=== PATIENT | female | born 1955 | race Caucasian/White ===

== ENCOUNTER 2021-09-17 15:21 | Emergency (ER) | payer OTHER ==
[2021-09-17 17:29] LABS: BASOPHIL 0.3 % (0-2); EOSINOPHIL 0.3 % (0-7); HGB 13.3 g/dl (12.5-16.0); LYMPHOCYTE 12.9 % (15-48); MCH 29.2 pg (25.0-31.0); MCHC 32.4 g/dL (32.0-36.0); MCV 89.9 fL (78.0-100.0); MONOCYTE 9.8 % (0-12); MPV 10.4 fL (6.0-9.5); NEUTROPHIL 76.3 % (41-80); NRBC 0; PLT 180 K/uL (150-400); RBC 4.56 M/uL (4.20-5.40); RDW 15.4 % (11.5-14.0); WBC 17.9 K/uL (4.0-10.5)
[2021-09-17 17:40] LABS: ALBUMIN 3.9 g/dL (3.4-5.0); BILIRUBIN - TOTAL 1.4 mg/dL (0.2-1.0); BUN/CREAT RATIO (CALC) 18.4 RATIO; CREATININE 0.76 mg/dL (0.51-0.95); GLOBULIN (CALCULATION) 3.4 g/dL; POTASSIUM 3.9 mmol/L (3.5-5.1); TOTAL PROTEIN 7.3 g/dL (6.4-8.2)
[2021-09-17 18:36] LABS: BILIRUBIN NEGATIVE (NEGATIVE); BLOOD TRACE-INTACT Ery/uL (NEGATIVE); CLARITY CLEAR (CLEAR); COLOR YELLOW (YELLOW); GLUCOSE (U) NORMAL (NORMAL); LEUKOCYTES 1+ Leu/uL (NEGATIVE); NITRITE NEGATIVE (NEGATIVE); PROTEIN NEGATIVE (NEGATIVE); SPECIFIC GRAVITY <=1.005 (1.001-1.030); UROBILINOGEN 0.2 mg/dL (0.2-1.0)
[2021-09-17 18:48] LABS: BACTERIA 1+; YEAST PRESENT
== END 2021-09-18 01:50 | disposition other institution (70) ==
LOC: FER 15:21
PROVIDERS: Physician Assistant
DX: N13.6 Pyonephrosis (principal); Z88.5 Allergy status to narcotic agent
CPT/HCPCS: 36415; 80053; 81001; 83605; 85025; J0696; J1885